=== PATIENT | male | born 1985 | race African-American/Black ===

== ENCOUNTER 2020-09-02 14:08 | Emergency (ER) | payer OTHER, SELFPAY ==
[2020-09-03 02:03] LABS: SARS-CoV-2 PCR by NAA Not Detected (NotDetected)
== END 2020-09-02 17:02 | disposition home or self-care (01) ==
LOC: ERS 14:08
DX: R11.2 Nausea with vomiting, unspecified (principal); R05 Cough; R52 Pain, unspecified; Z20.822 Contact with and (suspected) exposure to COVID-19
CPT/HCPCS: 87635; 99284; U0003; U0005